=== PATIENT | male | born 1965 | race Caucasian/White ===

== ENCOUNTER 2017-10-04 19:44 | Inpatient (IN) | payer OTHER ==
[~2017-10-04] VITALS: Ht 162.6 cm; Wt 71.8 kg
[~2017-10-04 19:44] MED LIST: INSREG SQ; LEVO125 PO; LISI-660 PO; OMEP20 PO; SIMV-260 PO
[2017-10-04 20:23] LABS: GLUCOSE,POINT OF CARE 378 MG/DL (70-110)
[2017-10-04] MEDS ORDERED: [UNRECOGNIZED DRUG - CODE] TP (20:25)
[2017-10-04] MEDS ORDERED: LORA10TA7 PO (20:25)
[2017-10-04] MEDS ORDERED: HYDR25TA PO (20:25)
[2017-10-04] MEDS ORDERED: GABA-531 PO (20:25)
[2017-10-04] MEDS ORDERED: METF500T6 PO (20:25)
[2017-10-04] MEDS ORDERED: LEVO150 PO (20:25)
[2017-10-04] MEDS ORDERED: LISI-661 PO (20:25)
[2017-10-04] MEDS ORDERED: AMLO-511 PO (20:25)
[2017-10-04] MEDS ORDERED: INSULIN REGULAR, HUMAN 100 UNITS/ML SQ ONE (21:30)
[2017-10-04] MEDS ORDERED: SODIUM PHOS/SODIUM BIPHOS 133 ML ENEMA PR ONE (21:30)
[2017-10-04] MEDS ORDERED: BARIUM SULFATE 0.1% SUSPENSION 450 ML BOTTLE PO ONE (21:30)
[2017-10-04 21:45] LABS: BASOPHILS % (AUTO) 0.3 % (0.0-2.0); EOSINOPHILS % (AUTO) 2.6 % (1.0-6.0); HEMATOCRIT 46.2 % (41-53); HEMOGLOBIN 16.7 g/dL (13.5-17.5); LYMPHOCYTES # (AUTO) 3.3 K/uL (1.0-4.8); LYMPHOCYTES % (AUTO) 40.9 % (22.0-44.0); MEAN CORPUSCULAR HEMOGLOBIN 31.4 pg (26.0-34.0); MEAN CORPUSCULAR HGB CONC 36.1 G/dL (31.0-37.0); MEAN CORPUSCULAR VOLUME 87 fL (80-100); MONOCYTES # (AUTO) 0.7 K/uL (0.1-1.0); MONOCYTES % (AUTO) 9.2 % (2.0-9.0); NEUTROPHILS # (AUTO) 3.7 K/uL (1.8-7.7); PLATELET COUNT (AUTO) 218 K/uL (150-450); RED BLOOD CELL COUNT(AUTO) 5.32 MIL/uL (4.50-5.90); RED CELL DISTRIBUTION WIDTH 12.9 % (11.5-14.5)
[2017-10-04 21:54] LABS: ANION GAP 8 mmol/L (8-16); CALCIUM, TOTAL 9.3 mg/dL (8.8-10.5); CARBON DIOXIDE 29 mmol/L (22-29); CHLORIDE 99 mmol/L (98-107); GLOMERULAR FILTR. RATE CALC > 60 mL/min (>60); GLUCOSE,RANDOM 341 mg/dL (70-110); POTASSIUM 4.4 mmol/L (3.5-5.1); SODIUM SERUM 136 mmol/L (136-145); UREA NITROGEN, BLOOD 17 mg/dL (7-18)
[2017-10-04 21:59] LABS: ALANINE AMINOTRANSFERASE 60 U/L (12-78); ALBUMIN 4.4 g/dL (3.4-5.0); ALKALINE PHOSPHATASE 100 U/L (46-116); ASPARTATE AMINOTRANSFERASE 18 U/L (15-37); BILIRUBIN,TOTAL 0.6 mg/dL (0.1-1.0); LIPASE 1497 U/L (73-393)
[2017-10-04] MEDS ORDERED: SODIUM CHLORIDE 0.9% 1,000 ML IV ONE (22:30)
[2017-10-04] MEDS ORDERED: ONDANSETRON HCL 4 MG/2 ML VIAL IVP ONE (22:30)
[2017-10-04] MEDS ORDERED: ONDANSETRON HCL 4 MG/2 ML VIAL IVP PRN (22:30)
[2017-10-04] MEDS ORDERED: ACETAMINOPHEN 325 MG TABLET PO PRN (22:30)
[2017-10-04] MEDS ORDERED: 0.9% SODIUM CHLORIDE 10 ML SYRINGE IVP PRN (22:30)
[2017-10-04] MEDS ORDERED: FentaNYL CITRATE-PF 100 MCG/2 ML VIAL IVP ONE (22:30)
[2017-10-04 23:03] LABS: GLUCOSE,POINT OF CARE 286 MG/DL (70-110)
[2017-10-04] MEDS ORDERED: SODIUM CHLORIDE 0.9% 100 ML ONE (23:43)
[2017-10-04] MEDS ORDERED: IOVERSOL 320 MG/ML 100 ML VIAL ONE (23:43)
[2017-10-04 23:52] LABS: TRIGLYCERIDES 384 mg/dL (15-150)
[2017-10-05] VITALS (7 sets, daily range): BP systolic 102–145; BP diastolic 64–88
[2017-10-05] MEDS ORDERED: PNEUMOCOCCAL VACCINE POLYVALENT 0.5 ML VIAL [PPSV23] IM ONE (04:30)
[2017-10-05] MEDS ORDERED: MORPHINE SULFATE 4 MG/ML SYRINGE IVP PRN (06:30)
[2017-10-05] MEDS ORDERED: BISACODYL 10 MG RECTAL RECTAL SUPPOSITORY PR PRN (06:30)
[2017-10-05] MEDS ORDERED: MAGNESIUM HYDROXIDE SUSPENSION 30 ML UDCUP PO PRN (06:30)
[2017-10-05] MEDS ORDERED: ALBUTEROL SULFATE 2.5 MG/0.5 ML NEB SOLUTION NEB PRN (06:30)
[2017-10-05] MEDS ORDERED: IPRATROPIUM BROMIDE 0.5 MG/2.5 ML NEB SOLUTION NEB PRN (06:30)
[2017-10-05] MEDS ORDERED: OxyCODONE HCL/ACETAMINOPHEN 5-325 MG TABLET PO PRN (06:30)
[2017-10-05] MEDS ORDERED: ACETAMINOPHEN 325 MG TABLET PO PRN (06:30)
[2017-10-05] MEDS ORDERED: ONDANSETRON HCL 4 MG/2 ML VIAL IVP PRN (06:30)
[2017-10-05] MEDS ORDERED: ZOLPIDEM TARTRATE 5 MG TABLET PO PRN (06:30)
[2017-10-05] MEDS: DEXTROSE 5%-0.45% SODIUM CHL 1,000 ML IV SCH ×2 (06:43→17:35)
[2017-10-05] MEDS: LEVOTHYROXINE SODIUM 50 MCG TABLET PO SCH (06:46)
[2017-10-05 07:32] LABS: LIPASE 464 U/L (73-393)
[2017-10-05] MEDS: GABAPENTIN 300 MG CAPSULE PO SCH ×3 (08:28→19:51)
[2017-10-05] MEDS: DOCUSATE SODIUM 100 MG CAPSULE PO SCH ×2 (08:28→19:51)
[2017-10-05] MEDS: AmLODIPine BESYLATE 5 MG TABLET PO SCH ×2 (08:28→19:51)
[2017-10-05] MEDS: HYDROCHLOROTHIAZIDE 25 MG TABLET PO SCH (08:28)
[2017-10-05] MEDS: LORATADINE 10 MG TABLET PO SCH (08:28)
[2017-10-05] MEDS: LISINOPRIL 10 MG TABLET PO SCH (08:28)
[2017-10-05] MEDS: PANTOPRAZOLE SODIUM 40 MG/VIAL IVP SCH (08:29)
[2017-10-05] MEDS: HEPARIN SODIUM,PORCINE 5,000 UNITS/ML VIAL SQ SCH ×3 (08:29→23:34)
[2017-10-05 08:36] LABS: BASOPHILS % (AUTO) 0.2 % (0.0-2.0); EOSINOPHILS % (AUTO) 3.6 % (1.0-6.0); HEMATOCRIT 40.6 % (41-53); HEMOGLOBIN 14.6 g/dL (13.5-17.5); LYMPHOCYTES # (AUTO) 2.2 K/uL (1.0-4.8); LYMPHOCYTES % (AUTO) 30.1 % (22.0-44.0); MEAN CORPUSCULAR HEMOGLOBIN 31.1 pg (26.0-34.0); MEAN CORPUSCULAR VOLUME 87 fL (80-100); MONOCYTES # (AUTO) 0.6 K/uL (0.1-1.0); MONOCYTES % (AUTO) 7.7 % (2.0-9.0); NEUTROPHILS # (AUTO) 4.2 K/uL (1.8-7.7); NEUTROPHILS % (AUTO) 58.4 % (40.0-70.0); PLATELET COUNT (AUTO) 182 K/uL (150-450); RED CELL DISTRIBUTION WIDTH 13.1 % (11.5-14.5)
[2017-10-05 08:45] LABS: ALANINE AMINOTRANSFERASE 52 U/L (12-78); ALBUMIN 3.7 g/dL (3.4-5.0); ALKALINE PHOSPHATASE 74 U/L (46-116); ANION GAP 8 mmol/L (8-16); ASPARTATE AMINOTRANSFERASE 24 U/L (15-37); BILIRUBIN,TOTAL 0.8 mg/dL (0.1-1.0); CALCIUM, TOTAL 8.4 mg/dL (8.8-10.5); CARBON DIOXIDE 27 mmol/L (22-29); CHLORIDE 101 mmol/L (98-107); CREATININE 0.84 mg/dL (0.60-1.30); GLOMERULAR FILTR. RATE CALC > 60 mL/min (>60); GLUCOSE,RANDOM 185 mg/dL (70-110); POTASSIUM 3.9 mmol/L (3.5-5.1); SODIUM SERUM 136 mmol/L (136-145); TOTAL PROTEIN, SERUM 6.6 g/dL (6.4-8.2); UREA NITROGEN, BLOOD 13 mg/dL (7-18)
[2017-10-05] MEDS ORDERED: INSULIN REGULAR, HUMAN 100 UNITS/ML SQ SCH (09:00)
[2017-10-05] MEDS ORDERED: OMEPRAZOLE 20 MG CAPSULE PO SCH (09:00)
[2017-10-05 09:58] LABS: GLUCOMETER DEV NAME(LOC) 6N 2D; GLUCOSE,POINT OF CARE 200 MG/DL (70-110)
[2017-10-05] MEDS ORDERED: LEVO175T9 PO (11:10)
[2017-10-05] MEDS ORDERED: MAGNESIUM CITRATE 300 ML ORAL SOLUTION PO ONE (11:30)
[2017-10-05] MEDS ORDERED: BISACODYL 10 MG RECTAL RECTAL SUPPOSITORY PR ONE (11:30)
[2017-10-05] MEDS ORDERED: DEXTROSE 50%-WATER 25 GM/50 ML SYRINGE IVP PRN (11:45)
[2017-10-05] MEDS: SENNA/DOCUSATE SODIUM 187-50 MG TABLET PO SCH ×2 (12:08→19:51)
[2017-10-05] MEDS: INSULIN LISPRO 100 UNITS/ML SQ PRN ×3 (12:22→21:00)
[2017-10-05 17:09] LABS: GLUCOMETER DEV NAME(LOC) 6N 2D; GLUCOSE,POINT OF CARE 261 MG/DL (70-110)
[2017-10-05 19:44] LABS: GLUCOMETER DEV NAME(LOC) 6N 1E; GLUCOSE,POINT OF CARE 98 MG/DL (70-110)
[2017-10-05] MEDS ORDERED: SIMVASTATIN 20 MG TABLET PO SCH (21:00)
[2017-10-06 00:58] LABS: GLUCOMETER DEV NAME(LOC) 6N 2D; GLUCOSE,POINT OF CARE 236 MG/DL (70-110)
[2017-10-06] MEDS: DEXTROSE 5%-0.45% SODIUM CHL 1,000 ML IV SCH (03:55)
[2017-10-06 04:22] VITALS: BP 107/66
[2017-10-06] MEDS: LEVOTHYROXINE SODIUM 50 MCG TABLET PO SCH (05:34)
[2017-10-06] MEDS: INSULIN LISPRO 100 UNITS/ML SQ PRN ×2 (05:35→12:06)
[2017-10-06 06:18] LABS: GLUCOMETER DEV NAME(LOC) 6N 1E; GLUCOSE,POINT OF CARE 194 MG/DL (70-110)
[2017-10-06 06:23] LABS: BASOPHILS % (AUTO) 0.3 % (0.0-2.0); EOSINOPHILS % (AUTO) 4.4 % (1.0-6.0); HEMATOCRIT 42.2 % (41-53); LYMPHOCYTES # (AUTO) 2.2 K/uL (1.0-4.8); LYMPHOCYTES % (AUTO) 37.6 % (22.0-44.0); MEAN CORPUSCULAR HEMOGLOBIN 31.1 pg (26.0-34.0); MEAN CORPUSCULAR HGB CONC 35.5 G/dL (31.0-37.0); MEAN CORPUSCULAR VOLUME 88 fL (80-100); MONOCYTES # (AUTO) 0.5 K/uL (0.1-1.0); MONOCYTES % (AUTO) 8.3 % (2.0-9.0); NEUTROPHILS # (AUTO) 2.9 K/uL (1.8-7.7); NEUTROPHILS % (AUTO) 49.4 % (40.0-70.0); PLATELET COUNT (AUTO) 179 K/uL (150-450); RED BLOOD CELL COUNT(AUTO) 4.82 MIL/uL (4.50-5.90)
[2017-10-06] MEDS ORDERED: MISC MED-CONVERTED FROM AMBULATORY (Levothyroxine Sodium 175 MCG) PO SCH (06:30)
[2017-10-06 06:46] LABS: ALANINE AMINOTRANSFERASE 55 U/L (12-78); ALBUMIN 3.5 g/dL (3.4-5.0); ALKALINE PHOSPHATASE 70 U/L (46-116); AMYLASE 48 U/L (25-115); ANION GAP 11 mmol/L (8-16); ASPARTATE AMINOTRANSFERASE 28 U/L (15-37); BILIRUBIN,TOTAL 0.7 mg/dL (0.1-1.0); CALCIUM, TOTAL 8.5 mg/dL (8.8-10.5); CARBON DIOXIDE 27 mmol/L (22-29); CHLORIDE 101 mmol/L (98-107); CREATININE 0.79 mg/dL (0.60-1.30); GLOMERULAR FILTR. RATE CALC > 60 mL/min (>60); GLUCOSE,RANDOM 212 mg/dL (70-110); LIPASE 156 U/L (73-393); POTASSIUM 4.4 mmol/L (3.5-5.1); SODIUM SERUM 139 mmol/L (136-145); TOTAL PROTEIN, SERUM 6.4 g/dL (6.4-8.2); UREA NITROGEN, BLOOD 8 mg/dL (7-18)
[2017-10-06] MEDS ORDERED: SENN-144 PO (07:28)
[2017-10-06 07:50] VITALS: BP 110/73
[2017-10-06] MEDS: HEPARIN SODIUM,PORCINE 5,000 UNITS/ML VIAL SQ SCH (08:45)
[2017-10-06] MEDS: PANTOPRAZOLE SODIUM 40 MG/VIAL IVP SCH (08:45)
[2017-10-06] MEDS: SENNA/DOCUSATE SODIUM 187-50 MG TABLET PO SCH (08:46)
[2017-10-06] MEDS: LORATADINE 10 MG TABLET PO SCH (08:46)
[2017-10-06] MEDS: DOCUSATE SODIUM 100 MG CAPSULE PO SCH (08:46)
[2017-10-06] MEDS: HYDROCHLOROTHIAZIDE 25 MG TABLET PO SCH (08:46)
[2017-10-06] MEDS: GABAPENTIN 300 MG CAPSULE PO SCH (08:47)
[2017-10-06] MEDS: LISINOPRIL 10 MG TABLET PO SCH (08:47)
[2017-10-06] MEDS: AmLODIPine BESYLATE 5 MG TABLET PO SCH (08:47)
[2017-10-06 11:38] VITALS: BP 101/67
[2017-10-06 14:29] LABS: GLUCOMETER DEV NAME(LOC) 6N 1E; GLUCOSE,POINT OF CARE 170 MG/DL (70-110)
== END 2017-10-06 13:53 | disposition home or self-care (01) | DRG 282 ==
LOC: EMS 19:46 → 6N 22:30
PROVIDERS: ADMIT Hospitalist; ATTEND Hospitalist
DX: K85.90 Acute pancreatitis without necrosis or infection, unspecified (principal); E11.65 Type 2 diabetes mellitus with hyperglycemia; I10 Essential (primary) hypertension; K59.00 Constipation, unspecified; E86.0 Dehydration; E78.00 Pure hypercholesterolemia, unspecified; E03.9 Hypothyroidism, unspecified; Z88.0 Allergy status to penicillin; Z79.4 Long term (current) use of insulin; Z85.850 Personal history of malignant neoplasm of thyroid; Z28.21 Immunization not carried out because of patient refusal
CPT/HCPCS: 74177; 84478; 93005; 96361; 96372; 96374; 96375; 99285; C9113; J1644; J1815; J2405; J3010; J7030; J7050

== ENCOUNTER 2018-01-07 18:58 | Inpatient (IN) | payer OTHER ==
[~2018-01-07] VITALS: Ht 167.6 cm; Wt 73.3 kg
[~2018-01-07 18:58] MED LIST changes: +AMLO-511 PO; +GABA-531 PO; +HYDR25TA PO; -LEVO125 PO; +LEVO175T9 PO; -LISI-660 PO; +LISI-661 PO; +LORA10TA7 PO; +METF-960 PO; +SENN-144 PO; +[UNRECOGNIZED DRUG - CODE] TP
[2018-01-07 19:13] LABS: GLUCOSE,POINT OF CARE 107 MG/DL (70-110)
[2018-01-07 19:38] LABS: ANION GAP 5 mmol/L (8-16); CARBON DIOXIDE 31 mmol/L (22-29); CHLORIDE 100 mmol/L (98-107); CREATININE 0.87 mg/dL (0.60-1.30); GLOMERULAR FILTR. RATE CALC > 60 mL/min (>60); GLUCOSE,RANDOM 111 mg/dL (70-110); POTASSIUM 3.7 mmol/L (3.5-5.1); SODIUM SERUM 136 mmol/L (136-145); UREA NITROGEN, BLOOD 11 mg/dL (7-18)
[2018-01-07 19:40] LABS: BASOPHILS % (AUTO) 0.2 % (0.0-2.0); EOSINOPHILS % (AUTO) 3.1 % (1.0-6.0); HEMOGLOBIN 14.2 g/dL (13.5-17.5); LYMPHOCYTES # (AUTO) 2.7 K/uL (1.0-4.8); LYMPHOCYTES % (AUTO) 36.3 % (22.0-44.0); MEAN CORPUSCULAR HEMOGLOBIN 31.3 pg (26.0-34.0); MEAN CORPUSCULAR HGB CONC 35.6 G/dL (31.0-37.0); MEAN CORPUSCULAR VOLUME 88 fL (80-100); MONOCYTES # (AUTO) 0.6 K/uL (0.1-1.0); MONOCYTES % (AUTO) 7.5 % (2.0-9.0); NEUTROPHILS % (AUTO) 52.9 % (40.0-70.0); PLATELET COUNT (AUTO) 244 K/uL (150-450); RED BLOOD CELL COUNT(AUTO) 4.55 MIL/uL (4.50-5.90); RED CELL DISTRIBUTION WIDTH 13.4 % (11.5-14.5)
[2018-01-07 19:43] LABS: ALANINE AMINOTRANSFERASE 52 U/L (12-78); ALBUMIN 4.6 g/dL (3.4-5.0); ALKALINE PHOSPHATASE 70 U/L (46-116); ASPARTATE AMINOTRANSFERASE 22 U/L (15-37); BILIRUBIN,TOTAL 0.6 mg/dL (0.1-1.0); TOTAL PROTEIN, SERUM 8.1 g/dL (6.4-8.2)
[2018-01-07] MEDS ORDERED: OxyCODONE HCL/ACETAMINOPHEN 5-325 MG TABLET PO PRN (20:45)
[2018-01-07] MEDS ORDERED: MORPHINE SULFATE 2 MG/ML SYRINGE IVP PRN (20:45)
[2018-01-07] MEDS ORDERED: ACETAMINOPHEN 325 MG TABLET PO PRN (20:45)
[2018-01-07] MEDS ORDERED: MAGNESIUM HYDROXIDE SUSPENSION 30 ML UDCUP PO PRN (20:45)
[2018-01-07] MEDS ORDERED: ALBUTEROL SULFATE 2.5 MG/0.5 ML NEB SOLUTION NEB PRN (20:45)
[2018-01-07] MEDS ORDERED: DEXTROSE 50%-WATER 25 GM/50 ML SYRINGE IVP PRN (21:00)
[2018-01-07] MEDS ORDERED: LISINOPRIL 20 MG TABLET PO SCH (21:00)
[2018-01-07] MEDS ORDERED: SIMVASTATIN 20 MG TABLET PO SCH (21:00)
[2018-01-07] MEDS ORDERED: ASPIRIN 81 MG CHEWABLE TABLET PO SCH (21:00)
[2018-01-07 21:15] LABS: THYROID STIMULATING HORMONE 1.19 uIU/mL (0.36-3.74)
[2018-01-07] MEDS ORDERED: MORPHINE SULFATE 4 MG/ML SYRINGE IVP PRN (21:19)
[2018-01-07 21:42] VITALS: BP 151/97
[2018-01-07] MEDS: DOCUSATE SODIUM 100 MG CAPSULE PO SCH (22:02)
[2018-01-07] MEDS: CARVEDILOL 6.25 MG TABLET PO SCH (22:03)
[2018-01-07 23:36] VITALS: BP 115/75
[2018-01-08 04:09] VITALS: BP 100/63
[2018-01-08] MEDS: INSULIN LISPRO 100 UNITS/ML SQ PRN ×2 (06:23→11:51)
[2018-01-08 07:44] VITALS: BP 117/79
[2018-01-08] MEDS: DOCUSATE SODIUM 100 MG CAPSULE PO SCH (07:56)
[2018-01-08] MEDS ORDERED: LEVOTHYROXINE SODIUM 50 MCG TABLET PO SCH (09:00)
[2018-01-08] MEDS ORDERED: PANTOPRAZOLE SODIUM 40 MG DR TABLET PO SCH (09:00)
[2018-01-08] MEDS: CARVEDILOL 6.25 MG TABLET PO SCH (09:09)
[2018-01-08 11:18] VITALS: BP 116/80
[2018-01-08 13:03] LABS: GLUCOMETER DEV NAME(LOC) 5N 2S; GLUCOSE,POINT OF CARE 155 MG/DL (70-110)
[2018-01-08 13:03] LABS: GLUCOMETER DEV NAME(LOC) 5N 2S; GLUCOSE,POINT OF CARE 115 MG/DL (70-110)
[2018-01-08 13:03] LABS: GLUCOMETER DEV NAME(LOC) 5N 2S; GLUCOSE,POINT OF CARE 146 MG/DL (70-110)
== END 2018-01-08 12:30 | disposition home or self-care (01) | DRG 203 ==
LOC: EMS 18:58 → 5N 20:44
PROVIDERS: ADMIT Internal Medicine; ATTEND Internal Medicine
DX: R07.89 Other chest pain (principal); E11.40 Type 2 diabetes mellitus with diabetic neuropathy, unspecified; E03.9 Hypothyroidism, unspecified; I10 Essential (primary) hypertension; E78.5 Hyperlipidemia, unspecified; E78.00 Pure hypercholesterolemia, unspecified; R09.1 Pleurisy; Z85.850 Personal history of malignant neoplasm of thyroid; Z88.0 Allergy status to penicillin
CPT/HCPCS: 84443; 85379; 93005; 93306; G0378; J2270

== ENCOUNTER 2019-04-08 14:50 | Inpatient (IN) | payer OTHER ==
[~2019-04-08] VITALS: Ht 170.2 cm; Wt 71.1 kg
[~2019-04-08 14:50] MED LIST changes: -AMLO-511 PO; -GABA-531 PO; -HYDR25TA PO; -LORA10TA7 PO; -[UNRECOGNIZED DRUG - CODE] TP
[2019-04-08 15:09] LABS: GLUCOSE,POINT OF CARE 113 MG/DL (70-110)
[2019-04-08] MEDS ORDERED: ASPIRIN 81 MG CHEWABLE TABLET PO ONE (15:15)
[2019-04-08 15:21] LABS: BASOPHILS % (AUTO) 0.3 % (0.0-2.0); EOSINOPHILS % (AUTO) 1.9 % (1.0-6.0); HEMATOCRIT 42.9 % (41-53); LYMPHOCYTES # (AUTO) 2.5 K/uL (1.0-4.8); LYMPHOCYTES % (AUTO) 32.5 % (22.0-44.0); MEAN CORPUSCULAR HEMOGLOBIN 30.8 pg (26.0-34.0); MEAN CORPUSCULAR VOLUME 88 fL (80-100); MONOCYTES # (AUTO) 0.6 K/uL (0.1-1.0); MONOCYTES % (AUTO) 7.3 % (2.0-9.0); NEUTROPHILS # (AUTO) 4.4 K/uL (1.8-7.7); PLATELET COUNT (AUTO) 208 K/uL (150-450); RED BLOOD CELL COUNT(AUTO) 4.86 MIL/uL (4.50-5.90); RED CELL DISTRIBUTION WIDTH 13.6 % (11.5-14.5)
[2019-04-08] MEDS ORDERED: NITROGLYCERIN 50 MG/D5% WATER 250 ML IV PRN (15:25)
[2019-04-08 15:45] LABS: ANION GAP 8 mmol/L (8-16); CALCIUM, TOTAL 9.1 mg/dL (8.8-10.5); CARBON DIOXIDE 30 mmol/L (22-29); CHLORIDE 103 mmol/L (98-107); CREATININE 1.09 mg/dL (0.60-1.30); GLOMERULAR FILTR. RATE CALC > 60 mL/min (>60); GLUCOSE,RANDOM 120 mg/dL (70-110); POTASSIUM 5.1 mmol/L (3.5-5.1); SODIUM SERUM 141 mmol/L (136-145); UREA NITROGEN, BLOOD 15 mg/dL (7-18)
[2019-04-08 15:49] LABS: ALANINE AMINOTRANSFERASE 38 U/L (12-78); ALBUMIN 4.3 g/dL (3.4-5.0); ALKALINE PHOSPHATASE 83 U/L (46-116); ASPARTATE AMINOTRANSFERASE 20 U/L (15-37); BILIRUBIN,TOTAL 0.5 mg/dL (0.1-1.0); CREATINE KINASE, TOTAL ONLY 49 U/L (39-308); TOTAL PROTEIN, SERUM 7.5 g/dL (6.4-8.2)
[2019-04-08 16:03] LABS: B-TYPE NATRIURETIC PEPTIDE 13 pg/mL (0-100)
[2019-04-08] MEDS ORDERED: ONDANSETRON HCL 4 MG/2 ML VIAL IVP PRN ×2 (17:15→21:00)
[2019-04-08] MEDS ORDERED: ACETAMINOPHEN 325 MG TABLET PO PRN ×2 (17:15→21:00)
[2019-04-08 20:45] VITALS: BP 152/97
[2019-04-08] MEDS ORDERED: ALBUTEROL SULFATE 2.5 MG/0.5 ML NEB SOLUTION NEB PRN (21:00)
[2019-04-08] MEDS ORDERED: DEXTROSE 50%-WATER 25 GM/50 ML SYRINGE IVP PRN (21:00)
[2019-04-08] MEDS ORDERED: MAGNESIUM SULFATE 2 GM/WATER 50 ML IV PRN (21:00)
[2019-04-08] MEDS ORDERED: IPRATROPIUM BROMIDE 0.5 MG/2.5 ML NEB SOLUTION NEB PRN (21:00)
[2019-04-08] MEDS ORDERED: POTASSIUM CHL 10 MEQ/WATER 50 ML IV PRN (21:00)
[2019-04-08] MEDS ORDERED: POTASSIUM CHLORIDE 20 MEQ ER TABLET PO PRN (21:00)
[2019-04-08] MEDS ORDERED: 0.9% SODIUM CHLORIDE 10 ML SYRINGE IVP PRN (21:00)
[2019-04-08] MEDS ORDERED: MAGNESIUM SULFATE 4 GM/WATER 100 ML IV PRN (21:00)
[2019-04-08] MEDS ORDERED: ZOLPIDEM TARTRATE 5 MG TABLET PO PRN (21:00)
[2019-04-08] MEDS ORDERED: LORazepam 2 MG/ML VIAL IVP PRN (21:00)
[2019-04-08] MEDS: INSULIN LISPRO 100 UNITS/ML SQ PRN (21:43)
[2019-04-08] MEDS: SIMVASTATIN 20 MG TABLET PO SCH (21:43)
[2019-04-08] MEDS: DOCUSATE SODIUM 100 MG CAPSULE PO SCH (21:43)
[2019-04-08] MEDS: ENOXAPARIN SODIUM 40 MG/0.4 ML PF SYRINGE SQ SCH (21:43)
[2019-04-08] MEDS: PANTOPRAZOLE SODIUM 40 MG/VIAL IVP SCH (21:44)
[2019-04-08 21:48] LABS: GLUCOSE,POINT OF CARE 160 MG/DL (70-110)
[2019-04-08] MEDS ORDERED: LISINOPRIL 5 MG TABLET PO ONE (23:15)
[2019-04-08] MEDS ORDERED: CARVEDILOL 6.25 MG TABLET PO ONE (23:15)
[2019-04-08] MEDS: NITROGLYCERIN 2% (1 GM=INCH) PACKET TP SCH (23:31)
[2019-04-09] VITALS (7 sets, daily range): BP systolic 104–139; BP diastolic 69–92
[2019-04-09 00:50] LABS: AMPHET/METH SCREEN,URINE NEGATIVE (NEGATIVE); BARBITURATE SCREEN, URINE NEGATIVE (NEGATIVE); BENZODIAZEPINES SCREEN,URINE NEGATIVE (NEGATIVE); CANNABINOID SCREEN,URINE NEGATIVE (NEGATIVE); COCAINE SCREEN,URINE NEGATIVE (NEGATIVE); METHADONE SCREEN, URINE NEGATIVE (NEGATIVE); OPIATE SCREEN,URINE NEGATIVE (NEGATIVE); PHENCYCLIDINE SCREEN,URINE NEGATIVE (NEGATIVE)
[2019-04-09] MEDS ORDERED: INFLUENZA VIRUS VACCINE QVS 2019-20 (3YR+)/PF 60 MCG/0.5 ML SYRINGE IM ONE (01:15)
[2019-04-09] MEDS ORDERED: PNEUMOCOCCAL VACCINE POLYVALENT 0.5 ML VIAL [PPSV23] IM ONE (01:15)
[2019-04-09] MEDS: IPRATROPIUM BROMIDE 0.5 MG/2.5 ML NEB SOLUTION NEB SCH ×4 (02:00→20:39)
[2019-04-09] MEDS: ALBUTEROL SULFATE 2.5 MG/0.5 ML NEB SOLUTION NEB SCH ×4 (02:00→20:39)
[2019-04-09 05:50] LABS: BASOPHILS % (AUTO) 0.3 % (0.0-2.0); EOSINOPHILS % (AUTO) 1.8 % (1.0-6.0); HEMATOCRIT 36.5 % (41-53); HEMOGLOBIN 13.1 g/dL (13.5-17.5); LYMPHOCYTES # (AUTO) 1.8 K/uL (1.0-4.8); LYMPHOCYTES % (AUTO) 29.7 % (22.0-44.0); MEAN CORPUSCULAR HEMOGLOBIN 31.8 pg (26.0-34.0); MEAN CORPUSCULAR VOLUME 88 fL (80-100); MONOCYTES # (AUTO) 0.5 K/uL (0.1-1.0); MONOCYTES % (AUTO) 8.8 % (2.0-9.0); NEUTROPHILS # (AUTO) 3.6 K/uL (1.8-7.7); NEUTROPHILS % (AUTO) 59.4 % (40.0-70.0); PLATELET COUNT (AUTO) 184 K/uL (150-450); RED BLOOD CELL COUNT(AUTO) 4.13 MIL/uL (4.50-5.90); RED CELL DISTRIBUTION WIDTH 13.5 % (11.5-14.5)
[2019-04-09 06:08] LABS: HEMOGLOBIN A1C 5.9 % (4.5-6.2)
[2019-04-09 06:11] LABS: ANION GAP 6 mmol/L (8-16); CALCIUM, TOTAL 8.5 mg/dL (8.8-10.5); CARBON DIOXIDE 29 mmol/L (22-29); CHLORIDE 103 mmol/L (98-107); CREATININE 1.06 mg/dL (0.60-1.30); FREE T4 (FREE THYROXINE) 1.31 ng/dL (0.76-1.46); GLOMERULAR FILTR. RATE CALC > 60 mL/min (>60); GLUCOSE,RANDOM 197 mg/dL (70-110); POTASSIUM 3.8 mmol/L (3.5-5.1); SODIUM SERUM 138 mmol/L (136-145); THYROID STIMULATING HORMONE 0.27 uIU/mL (0.36-3.74); UREA NITROGEN, BLOOD 12 mg/dL (7-18)
[2019-04-09 06:35] LABS: GLUCOSE,POINT OF CARE 133 MG/DL (70-110)
[2019-04-09] MEDS: LEVOTHYROXINE SODIUM 88 MCG TABLET PO SCH (06:47)
[2019-04-09] MEDS: MAGNESIUM OXIDE 400 MG TABLET PO PRN ×3 (07:07→17:23)
[2019-04-09] MEDS: MetFORMIN HCL 500 MG TABLET PO SCH ×2 (07:52→17:21)
[2019-04-09] MEDS: DOCUSATE SODIUM 100 MG CAPSULE PO SCH ×2 (08:33→20:09)
[2019-04-09] MEDS: PANTOPRAZOLE SODIUM 40 MG/VIAL IVP SCH (08:33)
[2019-04-09] MEDS: ENOXAPARIN SODIUM 40 MG/0.4 ML PF SYRINGE SQ SCH (08:35)
[2019-04-09] MEDS: NITROGLYCERIN 2% (1 GM=INCH) PACKET TP SCH ×3 (08:35→20:09)
[2019-04-09] MEDS ORDERED: CARVEDILOL 6.25 MG TABLET PO SCH (09:00)
[2019-04-09] MEDS ORDERED: LISINOPRIL 10 MG TABLET PO SCH (09:00)
[2019-04-09] MEDS ORDERED: OMEPRAZOLE 20 MG CAPSULE PO SCH (09:00)
[2019-04-09] MEDS: LISINOPRIL 5 MG TABLET PO SCH (09:00)
[2019-04-09] MEDS ORDERED: IOVERSOL 350 MG/ML 100 ML VIAL ONE (10:14)
[2019-04-09] MEDS ORDERED: SODIUM CHLORIDE 0.9% 100 ML ONE (10:15)
[2019-04-09] MEDS: INSULIN LISPRO 100 UNITS/ML SQ PRN ×2 (12:08→20:11)
[2019-04-09 13:13] LABS: GLUCOMETER DEV NAME(LOC) 5S.1; GLUCOSE,POINT OF CARE 171 MG/DL (70-110)
[2019-04-09 17:21] LABS: GLUCOMETER DEV NAME(LOC) 5N.1; GLUCOSE,POINT OF CARE 89 MG/DL (70-110)
[2019-04-09] MEDS: CARVEDILOL 6.25 MG TABLET PO SCH (20:09)
[2019-04-09] MEDS: SIMVASTATIN 20 MG TABLET PO SCH (20:09)
[2019-04-09 22:50] LABS: GLUCOMETER DEV NAME(LOC) 5N.1; GLUCOSE,POINT OF CARE 182 MG/DL (70-110)
[2019-04-10] MEDS: ALBUTEROL SULFATE 2.5 MG/0.5 ML NEB SOLUTION NEB SCH ×4 (01:54→20:00)
[2019-04-10] MEDS: IPRATROPIUM BROMIDE 0.5 MG/2.5 ML NEB SOLUTION NEB SCH ×4 (01:54→20:00)
[2019-04-10 04:22] VITALS: BP 108/71
[2019-04-10] MEDS: LEVOTHYROXINE SODIUM 88 MCG TABLET PO SCH (05:22)
[2019-04-10 05:45] LABS: GLUCOMETER DEV NAME(LOC) 5S.1; GLUCOSE,POINT OF CARE 125 MG/DL (70-110)
[2019-04-10 07:39] LABS: BASOPHILS % (AUTO) 0.2 % (0.0-2.0); EOSINOPHILS % (AUTO) 2.4 % (1.0-6.0); HEMATOCRIT 35.5 % (41-53); HEMOGLOBIN 12.9 g/dL (13.5-17.5); LYMPHOCYTES # (AUTO) 1.8 K/uL (1.0-4.8); LYMPHOCYTES % (AUTO) 22.8 % (22.0-44.0); MEAN CORPUSCULAR HEMOGLOBIN 31.8 pg (26.0-34.0); MEAN CORPUSCULAR HGB CONC 36.4 G/dL (31.0-37.0); MEAN CORPUSCULAR VOLUME 87 fL (80-100); MONOCYTES # (AUTO) 0.9 K/uL (0.1-1.0); MONOCYTES % (AUTO) 10.5 % (2.0-9.0); NEUTROPHILS # (AUTO) 5.2 K/uL (1.8-7.7); NEUTROPHILS % (AUTO) 64.1 % (40.0-70.0); PLATELET COUNT (AUTO) 184 K/uL (150-450); RED BLOOD CELL COUNT(AUTO) 4.07 MIL/uL (4.50-5.90); RED CELL DISTRIBUTION WIDTH 13.4 % (11.5-14.5)
[2019-04-10 07:56] LABS: ALANINE AMINOTRANSFERASE 28 U/L (12-78); ALBUMIN 3.6 g/dL (3.4-5.0); ALKALINE PHOSPHATASE 68 U/L (46-116); ANION GAP 8 mmol/L (8-16); ASPARTATE AMINOTRANSFERASE 12 U/L (15-37); BILIRUBIN,TOTAL 0.7 mg/dL (0.1-1.0); CALCIUM, TOTAL 8.6 mg/dL (8.8-10.5); CARBON DIOXIDE 28 mmol/L (22-29); CHLORIDE 102 mmol/L (98-107); CREATININE 0.85 mg/dL (0.60-1.30); GLOMERULAR FILTR. RATE CALC > 60 mL/min (>60); GLUCOSE,RANDOM 129 mg/dL (70-110); SODIUM SERUM 138 mmol/L (136-145); TOTAL PROTEIN, SERUM 6.6 g/dL (6.4-8.2); UREA NITROGEN, BLOOD 9 mg/dL (7-18)
[2019-04-10] MEDS: MetFORMIN HCL 500 MG TABLET PO SCH ×2 (08:25→18:15)
[2019-04-10] MEDS: LISINOPRIL 5 MG TABLET PO SCH (08:25)
[2019-04-10] MEDS: CARVEDILOL 6.25 MG TABLET PO SCH ×2 (08:25→20:39)
[2019-04-10] MEDS: MAGNESIUM OXIDE 400 MG TABLET PO PRN ×3 (08:25→20:40)
[2019-04-10] MEDS: ENOXAPARIN SODIUM 40 MG/0.4 ML PF SYRINGE SQ SCH (08:25)
[2019-04-10 08:26] VITALS: BP 123/78
[2019-04-10] MEDS: NITROGLYCERIN 2% (1 GM=INCH) PACKET TP SCH ×3 (08:29→20:39)
[2019-04-10] MEDS: DOCUSATE SODIUM 100 MG CAPSULE PO SCH ×2 (08:30→21:00)
[2019-04-10] MEDS: PANTOPRAZOLE SODIUM 40 MG/VIAL IVP SCH (09:53)
[2019-04-10 11:36] LABS: GLUCOMETER DEV NAME(LOC) 5S.1; GLUCOSE,POINT OF CARE 181 MG/DL (70-110)
[2019-04-10] MEDS: INSULIN LISPRO 100 UNITS/ML SQ PRN (11:36)
[2019-04-10 11:52] VITALS: BP 148/94
[2019-04-10 16:10] VITALS: BP 127/80
[2019-04-10 17:20] LABS: GLUCOMETER DEV NAME(LOC) 5S.1; GLUCOSE,POINT OF CARE 102 MG/DL (70-110)
[2019-04-10] MEDS: SIMVASTATIN 20 MG TABLET PO SCH (20:39)
[2019-04-10 21:00] VITALS: BP 123/82
[2019-04-11 00:45] VITALS: BP 117/68
[2019-04-11] MEDS: IPRATROPIUM BROMIDE 0.5 MG/2.5 ML NEB SOLUTION NEB SCH ×3 (02:00→14:00)
[2019-04-11] MEDS: ALBUTEROL SULFATE 2.5 MG/0.5 ML NEB SOLUTION NEB SCH ×3 (02:00→14:00)
[2019-04-11 02:32] LABS: GLUCOMETER DEV NAME(LOC) 5N.1; GLUCOSE,POINT OF CARE 135 MG/DL (70-110)
[2019-04-11 04:45] VITALS: BP 102/67
[2019-04-11] MEDS: LEVOTHYROXINE SODIUM 88 MCG TABLET PO SCH (06:06)
[2019-04-11 06:23] LABS: GLUCOMETER DEV NAME(LOC) 5S.1; GLUCOSE,POINT OF CARE 121 MG/DL (70-110)
[2019-04-11 07:41] VITALS: BP 114/74
[2019-04-11] MEDS: NITROGLYCERIN 2% (1 GM=INCH) PACKET TP SCH (09:00)
[2019-04-11] MEDS: DOCUSATE SODIUM 100 MG CAPSULE PO SCH (09:00)
[2019-04-11] MEDS: LISINOPRIL 5 MG TABLET PO SCH ×2 (09:00→15:27)
[2019-04-11] MEDS: ENOXAPARIN SODIUM 40 MG/0.4 ML PF SYRINGE SQ SCH (10:17)
[2019-04-11] MEDS: PANTOPRAZOLE SODIUM 40 MG/VIAL IVP SCH (10:18)
[2019-04-11] MEDS: MetFORMIN HCL 500 MG TABLET PO SCH (10:19)
[2019-04-11] MEDS: CARVEDILOL 6.25 MG TABLET PO SCH (10:19)
[2019-04-11] MEDS: MAGNESIUM OXIDE 400 MG TABLET PO PRN (10:20)
[2019-04-11 11:10] VITALS: BP 119/74
[2019-04-11] MEDS: INSULIN LISPRO 100 UNITS/ML SQ PRN (11:59)
[2019-04-11] MEDS ORDERED: MAGNESIUM SULFATE 2 GM/WATER 50 ML IV ONE (12:45)
[2019-04-11] MEDS ORDERED: LISI-660 PO (13:23)
[2019-04-11] MEDS ORDERED: CARV6 PO (13:25)
[2019-04-11 15:02] VITALS: BP 167/92
[2019-04-11 16:19] VITALS: BP 139/91
[2019-04-11 21:10] LABS: GLUCOMETER DEV NAME(LOC) 5N.1; GLUCOSE,POINT OF CARE 141 MG/DL (70-110)
== END 2019-04-11 16:40 | disposition home or self-care (01) | DRG 199 ==
LOC: EMS 14:52 → ICU 17:09 → 5N 04-09 11:30
PROVIDERS: ADMIT Internal Medicine; ATTEND Internal Medicine
DX: I16.1 Hypertensive emergency (principal); I20.0 Unstable angina; E11.9 Type 2 diabetes mellitus without complications; F41.9 Anxiety disorder, unspecified; E78.00 Pure hypercholesterolemia, unspecified; I10 Essential (primary) hypertension; E78.5 Hyperlipidemia, unspecified; E89.0 Postprocedural hypothyroidism; Z88.0 Allergy status to penicillin; Z85.850 Personal history of malignant neoplasm of thyroid; Z82.49 Family history of ischemic heart disease and other diseases of the circulatory system; Z28.21 Immunization not carried out because of patient refusal
CPT/HCPCS: 71275; 80307; 83036; 83735; 84439; 84443; 84481; 87081; 93005; 93306; 94640; 96365; 97161; 99291; C9113; G0378; J1650; J2060; J2405; J3475; J3490; J7050

== ENCOUNTER 2021-10-22 09:54 | Emergency (ER) | payer OTHER ==
[~2021-10-22] VITALS: Ht 175.3 cm; Wt 76.0 kg
[~2021-10-22 09:54] MED LIST changes: +CARV6 PO; -LISI-661 PO; +LISI-892 PO; +METF-1211 PO; -METF-960 PO
[2021-10-22 11:10] VITALS: BP 114/83
[2021-10-22 11:46] LABS: GLUCOMETER DEV NAME(LOC) ERT.5; GLUCOSE,POINT OF CARE 342 MG/DL (70-110)
[2021-10-22] MEDS ORDERED: LEVO137T2 PO (12:07)
[2021-10-22] MEDS ORDERED: SODIUM CHLORIDE 0.9% 1,000 ML IV ONE (12:15)
[2021-10-22 13:56] LABS: GLUCOSE,POINT OF CARE 237 MG/DL (70-110)
[2021-10-22] MEDS ORDERED: SULF-261 PO (13:57)
== END 2021-10-22 14:11 | disposition home or self-care (01) ==
LOC: EMS 09:54
DX: L03.031 Cellulitis of right toe (principal); E78.00 Pure hypercholesterolemia, unspecified; E11.65 Type 2 diabetes mellitus with hyperglycemia; I10 Essential (primary) hypertension; E03.9 Hypothyroidism, unspecified; Z98.890 Other specified postprocedural states; Z88.0 Allergy status to penicillin; Z91.09 Other allergy status, other than to drugs and biological substances
CPT/HCPCS: 99283; 96360; 96361; 82962; J7030

== ENCOUNTER 2022-07-11 10:18 | Emergency (ER) | payer OTHER ==
[~2022-07-11] VITALS: Ht 160 cm; Wt 76.4 kg
[~2022-07-11 10:18] MED LIST changes: -CARV6 PO; -INSREG SQ; +LEVO137T2 PO; -LEVO175T9 PO; -LISI-892 PO; -SENN-144 PO; -SIMV-260 PO; +SULF-261 PO
[2022-07-11 10:41] LABS: GLUCOMETER DEV NAME(LOC) ERT.5; GLUCOSE,POINT OF CARE 468 MG/DL (70-110)
[2022-07-11] MEDS ORDERED: SODIUM CHLORIDE 0.9% 1,000 ML IV ONE (11:00)
[2022-07-11] MEDS ORDERED: INSULIN REGULAR, HUMAN 100 UNITS/ML IVP ONE ×2 (11:00→14:00)
[2022-07-11 11:01] LABS: BASOPHILS % (AUTO) 0.3 % (0.0-2.0); EOSINOPHILS % (AUTO) 1.1 % (1.0-6.0); HEMOGLOBIN 17.1 g/dL (13.5-17.5); LYMPHOCYTES # (AUTO) 2.2 K/uL (1.0-4.8); LYMPHOCYTES % (AUTO) 28.1 % (22.0-44.0); MEAN CORPUSCULAR HEMOGLOBIN 31.4 pg (26.0-34.0); MEAN CORPUSCULAR HGB CONC 34.9 G/dL (31.0-37.0); MEAN CORPUSCULAR VOLUME 90 fL (80-100); MONOCYTES # (AUTO) 0.5 K/uL (0.1-1.0); MONOCYTES % (AUTO) 6.4 % (2.0-9.0); NEUTROPHILS # (AUTO) 5.1 K/uL (1.8-7.7); NEUTROPHILS % (AUTO) 64.1 % (40.0-70.0); PLATELET COUNT (AUTO) 231 K/uL (150-450); RED BLOOD CELL COUNT(AUTO) 5.44 MIL/uL (4.50-5.90); RED CELL DISTRIBUTION WIDTH 12.9 % (11.5-14.5)
[2022-07-11 11:14] LABS: ALANINE AMINOTRANSFERASE 32 U/L (12-78); ALBUMIN 4.3 g/dL (3.4-5.0); ALKALINE PHOSPHATASE 152 U/L (46-116); ANION GAP 10 mmol/L (8-16); ASPARTATE AMINOTRANSFERASE 17 U/L (15-37); BILIRUBIN,TOTAL 0.6 mg/dL (0.1-1.0); CALCIUM, TOTAL 9.4 mg/dL (8.8-10.5); CARBON DIOXIDE 27 mmol/L (22-29); CHLORIDE 96 mmol/L (98-107); CREATININE 1.09 mg/dL (0.60-1.30); GLOMERULAR FILTR. RATE CALC > 60 mL/min (>60); POTASSIUM 4.4 mmol/L (3.5-5.1); SODIUM SERUM 133 mmol/L (136-145); TOTAL PROTEIN, SERUM 8.4 g/dL (6.4-8.2); UREA NITROGEN, BLOOD 13 mg/dL (7-18)
[2022-07-11 11:19] LABS: GLUCOSE,RANDOM 518 mg/dL (70-110)
[2022-07-11 11:25] LABS: ACETONE,BLOOD NEGATIVE (NEGATIVE)
[2022-07-11] MEDS ORDERED: LEVOTHYROXINE SODIUM 150 MCG TABLET PO ONE (12:15)
[2022-07-11 13:06] LABS: APPEARANCE,URINE CLEAR (CLEAR); BILIRUBIN,URINE NEGATIVE (NEGATIVE); GLUCOSE, URINE (UA) >=1000 mg/dL (NEGATIVE); KETONES,URINE NEGATIVE (NEGATIVE); LEUKOCYTE ESTERASE ,URINE NEGATIVE (NEGATIVE); NITRATE,URINE NEGATIVE (NEGATIVE); OCCULT BLOOD,URINE NEGATIVE (NEGATIVE); PROTEIN,URINE TRACE mg/dL (NEGATIVE); SPECIFIC GRAVITIY, URINE 1.033 (1.003-1.030); UROBILINOGEN,URINE <=1.0 mg/dL (<=1.0)
[2022-07-11 13:06] LABS: GLUCOSE,POINT OF CARE 329 MG/DL (70-110)
[2022-07-11 13:11] LABS: BACTERIA,URINE None Seen /HPF (None Seen); RBC,URINE None Seen /HPF (0-2); WBC,URINE None Seen /HPF (0-5)
[2022-07-11] MEDS ORDERED: DOXYCYCLINE HYCLATE 100 MG TABLET PO ONE (14:00)
[2022-07-11] MEDS ORDERED: DOXY50 PO (14:02)
[2022-07-11 14:06] LABS: GLUCOSE,POINT OF CARE 333 MG/DL (70-110)
[2022-07-11 14:34] VITALS: BP 153/94
[2022-07-11 14:46] LABS: GLUCOSE,POINT OF CARE 272 MG/DL (70-110)
== END 2022-07-11 14:37 | disposition home or self-care (01) ==
LOC: EMS 10:19
DX: L03.031 Cellulitis of right toe (principal); E11.65 Type 2 diabetes mellitus with hyperglycemia; E03.9 Hypothyroidism, unspecified; E11.9 Type 2 diabetes mellitus without complications; E78.00 Pure hypercholesterolemia, unspecified; I10 Essential (primary) hypertension; Z98.890 Other specified postprocedural states; Z88.0 Allergy status to penicillin
CPT/HCPCS: 99285; 96374; 71045; 96361; 80053; 81001; 82009; 82962; 84443; 84484; 85025; 36415; 73660; 93005; 96376; J7030; J1815

== ENCOUNTER 2024-03-09 13:45 | Emergency (ER) | payer OTHER ==
[~2024-03-09] VITALS: Ht 170.2 cm; Wt 61.4 kg
[~2024-03-09 13:45] MED LIST changes: +DOXY50 PO; -SULF-261 PO
[2024-03-09 14:01] VITALS: TEMP 98.7
[2024-03-09 14:05] LABS: COVID AG,FIA SOURCE NASAL SWAB
[2024-03-09 14:25] LABS: BASOPHILS % (AUTO) 0.3 % (0.0-2.0); EOSINOPHILS % (AUTO) 1.5 % (1.0-6.0); HEMATOCRIT 47.2 % (41-53); HEMOGLOBIN 16.4 g/dL (13.5-17.5); LYMPHOCYTES # (AUTO) 2.3 K/uL (1.0-4.8); LYMPHOCYTES % (AUTO) 22.7 % (22.0-44.0); MEAN CORPUSCULAR HEMOGLOBIN 31.1 pg (26.0-34.0); MEAN CORPUSCULAR HGB CONC 34.8 G/dL (31.0-37.0); MEAN CORPUSCULAR VOLUME 89 fL (80-100); MONOCYTES # (AUTO) 0.5 K/uL (0.1-1.0); MONOCYTES % (AUTO) 4.5 % (2.0-9.0); NEUTROPHILS # (AUTO) 7.3 K/uL (1.8-7.7); PLATELET COUNT (AUTO) 221 K/uL (150-450); RED BLOOD CELL COUNT(AUTO) 5.29 MIL/uL (4.50-5.90); RED CELL DISTRIBUTION WIDTH 13.1 % (11.5-14.5); WHITE BLOOD COUNT (AUTO) 10.2 K/uL (4.5-11.0)
[2024-03-09 14:29] LABS: ANION GAP 3 mmol/L (8-16); CALCIUM, TOTAL 8.4 mg/dL (8.8-10.5); CARBON DIOXIDE 30 mmol/L (22-29); CHLORIDE 98 mmol/L (98-107); CREATININE 1.08 mg/dL (0.60-1.30); GLOMERULAR FILTR. RATE CALC > 60 mL/min (>60); GLUCOSE,RANDOM 343 mg/dL (70-110); POTASSIUM 4.1 mmol/L (3.5-5.1); SODIUM SERUM 131 mmol/L (136-145); UREA NITROGEN, BLOOD 16 mg/dL (7-18)
[2024-03-09 14:30] LABS: LIPASE 36 U/L (16-77)
[2024-03-09 14:40] LABS: SARS-COV2 (COVID) ANTIGEN,FIA Negative (Negative)
[2024-03-09 14:44] LABS: INFLUENZA TYPE A NEGATIVE FOR TYPE A (NEGATIVE); INFLUENZA TYPE B NEGATIVE FOR TYPE B (NEGATIVE)
[2024-03-09 17:00] VITALS: BP 154/84; PULSE 87; RESP 17; O2SAT 99
[2024-03-09] MEDS ORDERED: METF-446 PO (17:15)
[2024-03-09] MEDS ORDERED: GLIP10TA16 PO (17:15)
[2024-03-09] MEDS: SODIUM CHLORIDE 0.9% 1,000 ML IV ONE (17:27)
== END 2024-03-09 18:31 | disposition home or self-care (01) ==
LOC: EMS 13:46
DX: E11.65 Type 2 diabetes mellitus with hyperglycemia (principal); E86.0 Dehydration; I10 Essential (primary) hypertension; R05.9 Cough, unspecified; R50.9 Fever, unspecified; E78.00 Pure hypercholesterolemia, unspecified; E03.9 Hypothyroidism, unspecified; Z88.0 Allergy status to penicillin; Z20.822 Contact with and (suspected) exposure to COVID-19
CPT/HCPCS: 99284; 96360; 71045; 87426; 80048; 83690; 85025; 87804; 36415; 82962; J7030